=== PATIENT | male | born 1980 | race Caucasian/White ===

== ENCOUNTER 2019-08-01 12:52 | Emergency (ER) | payer OTHER, SELFPAY ==
--- NOTE | ~2019-08-01 | CT_ITS ---
EXAMINATION: CT brain wo con DATE: 08/01/2019 13:59 INDICATION: Altered mental status. TECHNIQUE: Computed tomography (CT) of the head was performed without intravenous contrast. The mA wa s adjusted according to patient size. Iterative reconstruction technique was employed. The dose-lengt h product was 605.33 mGy-cm. COMPARISON: None FINDINGS: There is no intracranial hemorrhage, acute infarction, or abnormal intracranial mass lesion . The ventricles are normal in size. The mastoid air cells are normal. The paranasal sinuses are brannon r. The orbits are normal. IMPRESSION: 1. Normal brain. Reviewed, dictated and finalized at location A. IMPRESSION: 1. Normal brain.
--- NOTE | ~2019-08-01 | XR_ITS ---
EXAMINATION: XR chest 2V DATE: 08/01/2019 13:58 INDICATION: Shortness of breath. TECHNIQUE: Frontal and lateral views of the chest were obtained. COMPARISON: Chest 2 views 06/12/2018 FINDINGS: The chest demonstrates clear lungs without pneumonia, pleural effusion, or pneumothorax. Th e heart size is normal. IMPRESSION: 1. No acute cardiopulmonary disease. Reviewed, dictated and finalized at location A.
--- NOTE | 2019-08-01 13:03 | ECG_ITS ---
Measurements Intervals [place] Rate: 92 P: 40 IA: 112 QRS: 31 QRSD: 85 T: -19 QT: 351 QTc: 436 Interpretive Statements SINUS RHYTHM DELAYED PRECORDIAL R/S TRANSITION ST ELEVATION IN ANT/LAT LEADS- PROBABALY EARLY REPOLARIZATION INFERIOR INFARCT, AGE INDETERMINATE ABNORMAL ECG Electronically Signed On 08-01-2019 13:53:40 CDT by Hugh Hernandez D.O.
[2019-08-01 13:10] VITALS: BP 158/84; PULSE 107; RESP 22; TEMP 36.3; O2SAT 99
--- NOTE | 2019-08-01 13:19 | ED.CHESTPAIN ---
HPI - Chest Pain General Chief Complaint: Chest Pain Stated Complaint: chest pains sob Time Seen by Provider: 08/01/19 12:54 Source: patient Mode of arrival: ambulatory Limitations: no limitations History of Present Illness HPI narrative: 39-year-old man comes in today complaining that he has anxiety, chest pain, shortness of breath and sweating waking this morning. He states he went to a friend's house last night, had a few beers and was watching TV when he felt sleepy. after that he recalls a bunch of people being around, his taking drugs (but not by which route or which drug), and his being naked. He states he had a single bout of diarrhea a few days ago. he denies fever, cough, cold symptoms, nausea, vomiting, diarrhea and trauma. He states he has done drugs and taken treatment for the same in the past. He is a smoker. MD complaint: chest pain Onset (ago): hour(s) (6) Timing of current episode: constant Prior episodes: No Onset: during rest Pain location: substernal Pain radiation: none Severity: moderate Quality: tightness Relieving factors: nothing Exacerbating factors: nothing Associated symptoms: diaphoresis Treatment prior to arrival: none Risk Factors Coronary artery disease risk factors: smoking history Related Data Allergies Allergy/AdvReac Type Severity Reaction Status Date / Time No Known Allergies Allergy Unverified 06/12/18 06:13 Review of Systems Constitutional: Constitutional: Denies chills, Denies fatigue, Denies fever(s) and Denies weakness Eyes: Eyes: Denies change in vision and Denies photophobia ENT: Denies dysphagia, Denies nasal congestion and Denies sore throat Cardiovascular: Cardiovascular: Reports chest pain, Reports rapid heart rate and Denies radiating jaw, neck or arm pain Respiratory: Respiratory: Denies chest congestion, Denies cough, Reports dyspnea and Denies wheezing Gastrointestinal: Gastrointestinal: Reports as per HPI, Denies abdominal pain, Reports diarrhea, Denies nausea and Denies vomiting Genitourinary: Genitourinary: Denies hematuria, Denies dysuria and Denies urinary frequency Musculoskeletal: Musculoskeletal: Denies arthralgias, Denies joint swelling and Denies muscle cramps Integumentary/Breasts: Skin/Breast: Denies pruritus, Denies erythema and Denies rash Neurologic: Denies vertigo, Denies dizziness and Denies syncope Psychiatric: Psychiatric: Denies anxiety and Denies depression Endocrine: Endocrine: Denies polydipsia and Denies polyuria Hematologic/Lymphatic: Hematologic/Lymphatic: Denies easy bleeding and Denies easy bruising Allergic/Immunologic: Allergic/Immunologic: Denies lip swelling and Denies wheezing FOR[facility] Past Medical History Medical History Anxiety Surgical History Surgical History H/O inguinal hernia repair Status post appendectomy Social History Social History (Updated 08/01/19 @ 13:28 by Geo Chaudhry MD) Smoking status: Current every day smoker Alcohol intake: current Substance use: former Living arrangements: alone Exam Const: General: healthy appearing, alert and diaphoretic Orientation/consciousness: patient oriented x3 Other: moderate acute distress HENMT: Ears: external ears normal, TM's normal bilaterally and EAC's normal Mouth: Yes Normal oral and palatal mucosa present and Yes moist mucous membranes Throat: posterior oropharynx normal and uvula midline Eyes: Conjunctivae: conjunctivae normal Pupils: Equal, round and reactive pupils present EOM: EOMs intact bilaterally Neck: Neck: normal visual inspection and no lymphadenopathy Resp: Effort & Inspection: not labored and tachypneic (@ 20) Auscultation: no rales, no rhonchi and no wheezes Cardio: Rate: tachycardic Rhythm: regular rhythm Heart sounds: no murmurs GI: Auscultation: normal bowel sounds Other: soft, nontender, nondist
[2019-08-01 13:22] VITALS: PULSE 107
[2019-08-01 13:28] LABS: Basophils Absolute Auto 0.05 K/mm3 (0.00-0.10); Basophils Percent Auto 0.5 % (0.0-1.0); Eosinophils Absolute Auto 0.01 K/mm3 (0.02-0.50); Eosinophils Percent Auto 0.1 % (1.0-6.0); Hematocrit 46.2 % (40.0-54.0); Hemoglobin 16.8 g/dL (14.0-18.0); Immature Granulocyte Absolute 0.04 K/mm3 (0.00-0.00); Immature Granulocyte Percent A 0.4 % (0.0-0.0); Lymphocytes Absolute Auto 1.67 K/mm3 (1.10-4.50); Lymphocytes Percent Auto 16.7 % (18.0-42.0); Mean Corpuscular HGB Conc 36.4 g/dL (32.0-36.0); Mean Corpuscular Hemoglobin 31.1 pg (27.0-31.0); Mean Corpuscular Volume 85.4 fL (78.0-102.0); Mean Platelet Volume 8.8 fl (8.7-11.0); Monocytes Absolute Auto 0.92 K/mm3 (0.10-0.90); Monocytes Percent Auto 9.2 % (2.0-11.0); Neutrophils Absolute Auto 7.3 K/mm3 (1.7-7.2); Neutrophils Percent Auto 73.1 % (50.0-70.0); Platelet Count Result 366 K/mm3 (150-420); Red Blood Count 5.41 M/mm3 (4.70-6.10)
[2019-08-01] MEDS: SODIUM CHLORIDE 0.9% IV 1,000 ML 999 ML IV CONT ×2 (13:37→15:31)
[2019-08-01 13:45] LABS: Acetaminophen 0 ug/mL (10-30); Alanine Aminotransferase 28 U/L (16-63); Albumin Level 4.7 g/dL (3.4-5.0); Alkaline Phosphatase 79 U/L (46-116); Anion Gap 20.4 mmol/L (7-16); Aspartate Amino Transferase 24 U/L (15-37); Bilirubin,Total 2.1 mg/dL (0.00-1.00); Blood Urea Nitrogen 23 mg/dL (7-18); Carbon Dioxide 23 mmol/L (21-32); Chloride 100 mmol/L (98-108); Estimated CRCL calculation 52 ml/min; Estimated Glomerular Filt Rate 44; Ethanol < 3 mg/dL (0-6); Glucose 87 mg/dL (70-99); Osmolality Calculated 292 mOsm/kg (285-295); Potassium 3.4 mmol/L (3.5-5.1); Salicylate < 0.3 mg/dL (2.8-20.0); Sodium 140 mmol/L (136-145); Total Protein 8.3 g/dL (6.4-8.2)
[2019-08-01 13:46] LABS: Troponin I < 0.02 ng/mL (0.00-0.056)
[2019-08-01 13:47] LABS: D Dimer 0.19 mg/L (0.19-0.50)
--- NOTE | 2019-08-01 14:10 | PC.NURSE ---
Pt states he is unable to provide urine sample at this time.
[2019-08-01 14:34] VITALS: BP 135/78; PULSE 98; RESP 18; O2SAT 100
[2019-08-01 15:08] LABS: Creatine Kinase 259 U/L (39-308)
[2019-08-01] MEDS: LORAZEPAM 1 MG TABLET PO (15:30)
--- NOTE | 2019-08-01 15:31 | PC.NURSE ---
Pt continues to be anxious, conversations are rambling. pt reassured.
[2019-08-01 16:05] VITALS: PULSE 87; RESP 24; O2SAT 100
--- NOTE | 2019-08-01 16:47 | PC.NURSE ---
Pt continues to states he is unable to provide urine sample.
--- NOTE | 2019-08-01 17:14 | PC.NURSE ---
Pt sitting on stretcher texting on cell phone, pt states he is still unable to provide urine sample.
[2019-08-04 10:48] LABS: Metanephrine, Free 81 pg/mL (<=57); Normetanephrine, Free 233 pg/mL (<=148); Total, Free (MN + NMN) 314 pg/mL (<=205)
== END 2019-08-01 17:21 | disposition home or self-care (01) ==
PROVIDERS: Emergency Provider Emergency Medicine
DX: E86.0 Dehydration (principal); E87.6 Hypokalemia; N19 Unspecified kidney failure; R07.9 Chest pain, unspecified; F19.11 Other psychoactive substance abuse, in remission; F17.200 Nicotine dependence, unspecified, uncomplicated
CPT/HCPCS: 36415; 70450; 71046; 80053; 80307; 82550; 83835; 84484; 85025; 85380; 93005; 96360; 96361; 99284; A9270; J7030